=== PATIENT | male | born 1960 | race Caucasian/White ===

== ENCOUNTER → 2020-06-23 | Outpatient (CLI) | payer OTHER ==
--- NOTE | 2020-06-24 00:14 | RAD ---
EXAM: Right knee, 3 views HISTORY: Right knee pain. COMPARISON: None. FINDINGS: No fractures are identified. The medial compartmental joint space is mostly effaced with moderate ost eophytosis. There are smaller osteophytes along the lateral and patellofemoral compartments. There is mild varus angulation. There is a small joint effusion. IMPRESSION: 1. Moderate to severe medial compartment predominant osteoarthritis. Electronically signed by: Dony Enriquez MD (06/24/2020 12:12 AM) [facility]
== END ==
LOC: PMG 14:48
PROVIDERS: ATTEND Family Medicine
DX: M17.11 Unilateral primary osteoarthritis, right knee (principal); M25.761 Osteophyte, right knee; M25.461 Effusion, right knee
CPT/HCPCS: 73562

== ENCOUNTER → 2020-08-07 | Outpatient (CLI) | payer OTHER | LOC: LAB 10:00 | PROVIDERS: ATTEND Nurse Anesthetist, Certified Registered | DX: Z01.812 Encounter for preprocedural laboratory examination (principal); R05 Cough; R13.10 Dysphagia, unspecified; K21.9 Gastro-esophageal reflux disease without esophagitis; Z20.822 Contact with and (suspected) exposure to COVID-19 | CPT/HCPCS: U0003; U0005 ==

== ENCOUNTER → 2020-08-11 | Day surgery (SDC) | payer OTHER ==
[~2020-08-11] MED LIST: IPRATRPIUM/ALBUTEROL 0.5/2.5MG 3 ML NEBU. NEB PRN; IV RINGERS SOLUTION,LACTATED 1,000 ML IV SCH; LIDOCAINE 2% PF 5 ML VIAL. ONE; MIDAZOLAM HCL PF 2 MG/2 ML VIAL. IV ONE; ONDANSETRON PF 4 MG/2 ML VIAL. IV PRN; PROPOFOL 10,000 MCG/ML (20ML) VIAL IV ONE
[2020-08-11 11:20] VITALS: BP 122/76
--- NOTE | 2020-08-14 15:11 | PATHOLOGY ---
[facility] Accession Number: [id number] . 01 Material submitted: . PART A: gastrointestinal site - GASTRIC BIOPSY PART B: esophagus - DISTAL ESOPHAGEAL BIOPSY. Modifiers: distal . 01 Clinical history: . COLONOSCOPY REFLUX/COUGH EGD PREVIOUS VIST FOR UNILATERAL PRIMARY OSTEOARTHRITIS, RIGHT KNEE . 02 Diagnosis: A. Gastric biopsies: - Chronic gastritis, mild. . B. Esophageal biopsies, distal esophagus: - Reflux esophagitis showing focal erosion and acute inflammation and marked chronic inflammation. (JPM:[facility] 08/14/2020) [facility] 08/14/2020 1004 Local . 02 Comment: Sections of the gastric biopsy reveal segments of gastric antral and gastric body mucosa showing superficial congestion, edema, and mild chronic inflammation. A properly controlled immunoperoxidase stain for Helicobacter is negative for Helicobacter organisms. . Sections of the distal esophageal biopsy reveal segments of tangentially oriented hyperplastic squamous esophageal mucosa showing focal erosion and acute inflammation and marked chronic inflammation. There are a few intraepithelial eosinophils. The findings are consistent with reflux esophagitis. There is no evidence of an eosinophilic esophagitis. There is no evidence of Martinez's change, dysplasia, or malignancy. (JPM:[facility] 08/14/2020) . Special stain performed: Immunoperoxidase for Helicobacter on A1 . 02 Electronically signed: . Noé Alvarado MD, Pathologist NPI- [id number] . 01 Gross description: . A. The specimen is received in formalin, labeled "Jerardo Meléndez, gastric biopsy". Received are two segments of pale monzon tissue measuring 0.4 and 0.5 cm in maximum dimensions. The specimen is submitted entirely in cassette A1. . B. The specimen is received in formalin, labeled "Jerardo Meléndez, distal esophageal". Received are two segments of pale monzon tissue measuring 0.4 and 0.5 cm in maximum dimensions. The specimen is submitted entirely in cassette B1. (CAA; 08/13/2020) QAC/QAC 08/13/2020 1300 Local . 02 Pathologist provided ICD-10: K29.50, K21.00, K22.10 . 02 CPT . 377611, 196210, I13582 Specimen Comment: A courtesy copy of this report has been sent to [phone] Specimen Comment: [phone] Specimen Comment: Report sent to / DR KENNY Performed at: 01 [facility] [address], [place] [id number] MD Luis Alberto Vaughn MD Phone: [phone] Performed at: 02 [facility] [address] [place], [place] [id number] MD Noé Alvarado MD Phone: [phone]
== END | disposition home or self-care (01) ==
LOC: SURG 09:03
PROVIDERS: ATTEND Emergency Medicine
DX: Z12.11 Encounter for screening for malignant neoplasm of colon (principal); R13.10 Dysphagia, unspecified; K44.9 Diaphragmatic hernia without obstruction or gangrene; K21.00 Gastro-esophageal reflux disease with esophagitis, without bleeding; K22.2 Esophageal obstruction; K31.89 Other diseases of stomach and duodenum; M19.90 Unspecified osteoarthritis, unspecified site; K29.50 Unspecified chronic gastritis without bleeding; K22.10 Ulcer of esophagus without bleeding; I10 Essential (primary) hypertension; Z80.0 Family history of malignant neoplasm of digestive organs; Z72.89 Other problems related to lifestyle
CPT/HCPCS: 43239; 45378; 88305; 88342; J2001; J2704; J7120

== ENCOUNTER → 2020-11-24 | Day surgery (SDC) | payer OTHER ==
[~2020-11-24] MED LIST changes: +PANT40TA6 PO
[2020-11-24 08:54] VITALS: BP 138/99
--- NOTE | 2020-11-25 17:07 | PATHOLOGY ---
[facility] Accession Number: [id number] . 01 Material submitted: . gastrointestinal site - GASTRITIS GASTRIC BODY . 01 Clinical history: . GASTRITIS EGD . 02 Diagnosis: Gastric biopsy, gastric body: - Mild superficial chronic gastritis. (JPM:sharlene; 11/25/2020) R 11/25/2020 1416 Local . 02 Comment: Sections of the gastric body biopsy show congestion and mild chronic inflammation within the superficial lamina propria. A properly controlled immunoperoxidase stain for Helicobacter is negative for Helicobacter organisms. (JPM:sharlene; 11/25/2020) . . Special stain performed: Immunoperoxidase stain for Helicobacter . 02 Electronically signed: . Noé Alvarado MD, Pathologist NPI- [id number] . 01 Gross description: . The specimen is received in formalin, labeled "Jerardo Meléndez P and gastritis gastric body". It consists of a monzon irregular soft tissue fragment measuring 0.4 x 0.2 x 0.2 cm. The specimen is entirely submitted between sponges in A1. (MRF; 11/24/2020) MFE/MFE 11/24/2020 1819 Local . 02 Pathologist provided ICD-10: K29.30 . 02 CPT . 128081, [id number] Specimen Comment: A courtesy copy of this report has been sent to [phone] Specimen Comment: [phone] Specimen Comment: Report sent to / DR KENNY Performed at: 01 [facility] [address], [place], [place] [id number] MD Luis Alberto Vaughn MD Phone: [phone] Performed at: 02 [facility] [address] [place], [place] [id number] MD Noé Alvarado MD Phone: [phone]
== END | disposition home or self-care (01) ==
LOC: SURG 07:58
PROVIDERS: ATTEND Internal Medicine Gastroenterology
DX: K21.9 Gastro-esophageal reflux disease without esophagitis (principal); K29.50 Unspecified chronic gastritis without bleeding; J02.9 Acute pharyngitis, unspecified; K44.9 Diaphragmatic hernia without obstruction or gangrene; I10 Essential (primary) hypertension; Z79.899 Other long term (current) drug therapy
CPT/HCPCS: 43239; J2001; J2704; J7120; 88305; 88342